=== PATIENT | male | born 1975 | race Caucasian/White ===

== ENCOUNTER 2017-02-23 12:55 | Emergency (ER) | payer MEDICAID ==
[~2017-02-23] VITALS: Ht 175.3 cm; Wt 78.5 kg
[2017-02-23 12:59] VITALS: Ht 175.3 cm; Wt 78.5 kg
[2017-02-23] MEDS ORDERED: ONDANSETRON (ODT) 4 MG TAB ODT STA (15:08)
[2017-02-23 15:27] LABS: BASOPHIL # 0.1 10^3/ul (0.0-0.1); BASOPHILS % 0.9 % (0.0-2.0); EOSINOPHILS # 0.2 10^3/ul (0.0-0.5); EOSINOPHILS % 2.4 % (0.0-7.0); HEMATOCRIT 45.5 % (42.0-52.0); HEMOGLOBIN 16.1 g/dl (14.0-18.0); LYMPHOCYTES # 3.6 10^3/ul (0.8-2.9); LYMPHOCYTES % 36.2 % (15.0-51.0); MEAN CORPUSCULAR HEMOGLOBIN 32.2 pg (29.0-33.0); MEAN CORPUSCULAR HGB CONC 35.4 g/dl (32.0-37.0); MEAN PLATELET VOLUME 10.7 fl (7.4-10.4); MONOCYTE # 0.8 10^3/ul (0.3-0.9); MONOCYTES % 8.2 % (0.0-11.0); NEUTROPHIL # 5.1 10^3/ul (1.6-7.5); NEUTROPHILS % 51.9 % (39.0-77.0); PLATELET COUNT 248 10^3/UL (140-415); RED CELL DISTRIBUTION WIDTH 12.2 % (11.5-14.5); WHITE BLOOD COUNT 9.9 10^3/ul (4.8-10.8)
[2017-02-23] MEDS ORDERED: DICYCLOMINE 10 MG CAP PO ONE (15:30)
[2017-02-23 15:34] LABS: ADD UMIC NO; UR ASCORBIC ACID NEGATIVE (NEGATIVE); UR BILIRUBIN (Dip) NEGATIVE (NEGATIVE); UR BLOOD (Dip) NEGATIVE (NEGATIVE); UR CLARITY CLEAR (CLEAR); UR COLOR YELLOW (YELLOW); UR GLUCOSE (Dip) NEGATIVE (NEGATIVE); UR KETONES (Dip) NEGATIVE (NEGATIVE); UR LEUKOCYTE ESTERASE (Dip) NEGATIVE Leu/ul (NEGATIVE); UR NITRITE (Dip) NEGATIVE (NEGATIVE); UR SPECIFIC GRAVITY (Dip) 1.012 (1.003-1.030); UR TOTAL PROTEIN (Dip) NEGATIVE (NEGATIVE); UR UROBILINOGEN (Dip) NEGATIVE (NEGATIVE)
[2017-02-23 15:44] LABS: ALBUMIN 4.6 g/dl (3.3-4.9); ALBUMIN/GLOBULIN RATIO 1.53; BILIRUBIN,INDIRECT 0.3 mg/dl (0-1.1); BILIRUBIN,TOTAL 0.3 mg/dl (0.2-1.3); CALCIUM 9.5 mg/dl (8.4-10.2); CREATININE 0.93 mg/dl (0.61-1.24); POTASSIUM 4.1 mmol/L (3.5-5.1); TOTAL PROTEIN 7.6 g/dl (6.1-8.1)
[2017-02-23] MEDS ORDERED: ONDA4TAB14 PO (16:35)
[2017-02-23] MEDS ORDERED: DICY10CA60 PO (16:35)
--- NOTE | 2017-02-23 16:45 | ERD ---
ER Documentation Chief Complaint Chief Complaint Complains of abdominal pain x 3 days HPI Patient is a 41-year-old male who presents ED for concerns of abdominal pain 5 days. Patient states he has cramping pain throughout his abdomen. Patient also reports nausea vomiting and diarrhea. Patient approximate 1-2 episodes of nonbloody nonbilious vomiting per day. Patient approximates for episodes of nonbloody, non-mucousy, non-malodorous watery stools per day. Patient denies any rectal bleeding. Patient denies any fevers, chills, chest pain, shortness of breath or loss of consciousness. Patient denies any lightheadedness. Patient denies any recent travel. Patient denies any recent antibiotic use. ROS All systems reviewed and are negative except as per history of present illness. Medications Home Meds Active Scripts Ondansetron (Ondansetron Odt) 4 Mg Tab.rapdis, 4 MG PO Q6H Y for NAUSEA AND/OR VOMITING, #10 TAB Prov:EBENEZER GUZMÁN PA-C 02/23/17 Dicyclomine Hcl* (Bentyl*) 10 Mg Capsule, 10 MG PO TID, #20 CAP Prov:EBENEZER GUZMÁN PA-C 02/23/17 Allergies Allergies: Coded Allergies: Penicillins (Verified Allergy, Unknown, ANAPHYLACTIC SHOCK, 02/23/17) PMhx/Soc Medical and Surgical Hx: pt denies Medical Hx, pt denies Surgical Hx Hx Alcohol Use: No Hx Substance Use: No Hx Tobacco Use: No Physical Exam Vitals Vital Signs Date Time Temp Pulse Resp B/P Pulse Ox O2 Delivery O2 Flow Rate FiO2 02/23/17 12:59 97.8 83 20 136/89 100 Physical Exam GENERAL: Well-developed, well-nourished male. Appears in no acute distress. HEAD: Normocephalic, atraumatic. EYES: Pupils are equally reactive bilaterally. EOMs grossly intact. No conjunctival erythema. ENT: Moist mucous membranes. No uvula deviation. No kissing tonsils. NECK: Supple. No meningismus. Normal range of motion of the neck. LUNG: Clear to auscultation bilaterally. No rhonchi, wheezing, rales or coarse breath sounds. HEART: Regular rate and rhythm. No murmurs, rubs or gallops. ABDOMEN: Soft and nondistended. Diffuse tenderness to palpation in all four quadrants. Positive bowel sounds in all four quadrants. No rebound tenderness, no guarding. (-) McBurney's point tenderness. No CVA tenderness. EXTREMITIES: Equal pulses bilaterally. No peripheral clubbing, cyanosis or edema. No unilateral leg swelling. NEUROLOGIC: Alert and oriented. Moving all four extremities without any difficulty. Normal speech. Steady gait. SKIN: Normal color. Warm and dry. No rashes or lesions. Result Diagram: 02/23/17 1518 02/23/17 1518 Results 24 hrs Laboratory Tests Test 02/23/17 15:10 02/23/17 15:18 Urine Color YELLOW Urine Clarity CLEAR Urine pH 7.0 Urine Specific [place] 1.012 Urine Ketones NEGATIVEmg/dL Urine Nitrite NEGATIVEmg/dL Urine Bilirubin NEGATIVEmg/dL Urine Urobilinogen NEGATIVEmg/dL Urine Leukocyte Esterase NEGATIVELeu/ul Urine Hemoglobin NEGATIVEmg/dL Urine Glucose NEGATIVEmg/dL Urine Total Protein NEGATIVEmg/dl White Blood Count 9.910^3/ul Red Blood Count 5.0010^6/ul Hemoglobin 16.1g/dl Hematocrit 45.5% Mean Corpuscular Volume 91.0fl Mean Corpuscular Hemoglobin 32.2pg Mean Corpuscular Hemoglobin Concent 35.4g/dl Red Cell Distribution Width 12.2% Platelet Count 89946^3/UL Mean Platelet Volume 10.7fl Neutrophils % 51.9% Lymphocytes % 36.2% Monocytes % 8.2% Eosinophils % 2.4% Basophils % 0.9% Nucleated Red Blood Cells % 0.0/100WBC Neutrophils # 5.110^3/ul Lymphocytes # 3.610^3/ul Monocytes # 0.810^3/ul Eosinophils # 0.210^3/ul Basophils # 0.110^3/ul Nucleated Red Blood Cells # 0.010^3/ul Sodium Level 142mmol/L Potassium Level 4.1mmol/L Chloride Level 104mmol/L Carbon Dioxide Level 25mmol/L Anion Gap 17 Blood Urea Nitrogen 11mg/dl Creatinine 0.93mg/dl Glucose Level 87mg/dl Calcium Level 9.5mg/dl Total Bilirubin 0.3mg/dl Direct Bilirubin 0.00mg/dl Indirect Bilirubin 0.3mg/dl Aspartate Amino Transf (AST/SGOT) 37IU/L Alanine Aminotransferase (ALT/SGPT) 69IU/L Alkaline Phosphatase 52IU/L Total Protein 7.6g/dl Albumin 4.6g/dl Globulin 3.00g/dl Albumin/Globulin Ratio 1.53 Lipase 445U/L Current Medications Medications (Trade) Dose Ordered Sig/Darinel Route PRN Reason Start Time Stop Time Status Last Admin Dose Admin Dicyclomine HCl (Bentyl) 10 mg ONCE ONCE PO 02/23/17 15:30 12 15:31 DC 02/23/17 15:23 Ondansetron HCl (Zofran Odt) 4 mg ONCE STAT ODT 02/23/17 15:08 02/23/17 15:09 DC 02/23/17 15:23 Procedures/MDM MEDICAL DECISION MAKING: This is a 41-year-old male who presents ED for diffuse abdominal pain, nausea, vomiting, diarrhea 5 days.. Vital signs were reviewed. Patient is afebrile. Abdominal exam revealed diffuse tenderness in all 4 quadrants. CBC showed no evidence of systemic infection or severe anemia. CMP showed no evidence of electrolyte abnormalities, severe acidosis, alkalosis, renal failure, or liver disease. Lipase was elevated however there is no evidence of acute pancreatitis. Lipase is not 3 times the upper limit. UA showed no evidence of acute infection or hematuria. Upon discussing the patient's blood work findings with him, patient did state that his symptoms were improved with receiving Zofran and wished to eat. Patient was educated on BRAT diet. Patient was advised to drink plenty of fluids and stay hydrated. Patient was nontoxic, [id number] prior to discharge. At this time, patient's presentation is most consistent with viral gastroenteritis. Unble to rule out any bacterial causes. Patient was advised to follow-up with his primary care physician for stool studies on outpatient basis. Low suspicion for AAA, mesenteric ischemia, bowel obstruction, DKA, bowel perforation, cholecystitis, choledocholithiasis, ascending cholangitis, pancreatitis, PUD, gastritis, GERD, splenic rupture, diverticulitis, UTI, pyelonephritis, nephrolithiasis, appendicitis, constipation. PRESCRIPTIONS: Bentyl, Zofran DISCHARGE: At this time, patient is stable for discharge and outpatient management. Patient was given a copy of all imaging studies and blood work obtained today. I have instructed the patient to follow-up with his/her primary care physician in 1-2 days. I have instructed the patient to promptly return to the ER at any time for any new or worsening symptoms including increased pain, nausea, vomiting, diarrhea, fever, weakness or LOC. The patient and/or family expressed understanding of and agreement with this plan. All questions were answered. Home care instructions were provided. Disclaimer: Inadvertent spelling and grammatical errors are likely due to EHR/ dictation software use and do not reflect on the overall quality of patient care. Also, please note that the electronic time recorded on this note does not necessarily reflect the actual time of the patient encounter. Departure Diagnosis: Primary Impression: Nausea vomiting and diarrhea Additional Impression: Abdominal cramps Condition: Stable Patient Instructions: Gastroenteritis, Viral (6Y-Adult) Referrals: [facility] YOU HAVE RECEIVED A MEDICAL SCREENING EXAM AND THE RESULTS INDICATE THAT YOU DO NOT HAVE A CONDITION THAT REQUIRES URGENT TREATMENT IN THE EMERGENCY DEPARTMENT. FURTHER EVALUATION AND TREATMENT OF YOUR CONDITION CAN WAIT UNTIL YOU ARE SEEN IN YOUR DOCTORS OFFICE WITHIN THE NEXT 1-2 DAYS. IT IS YOUR RESPONSIBILITY TO MAKE AN APPOINTMENT FOR FOLOW-UP CARE. IF YOU HAVE A PRIMARY DOCTOR --you should call your primary doctor and schedule an appointment IF YOU DO NOT HAVE A PRIMARY DOCTOR YOU CAN CALL OUR PHYSICIAN REFERRAL HOTLINE AT IF YOU CAN NOT AFFORD TO SEE A PHYSICIAN YOU CAN CHOSE FROM THE FOLLOWING [facility] [address] [facility] [address] [facility]. [facility] [address] [facility] [address] [facility] [facility] [address] [facility]. [facility]. [address] [facility]. [facility] YOU HAVE RECEIVED A MEDICAL SCREENING EXAM AND THE RESULTS INDICATE THAT YOU DO NOT HAVE A CONDITION THAT REQUIRES URGENT TREATMENT IN THE EMERGENCY DEPARTMENT. FURTHER EVALUATION AND TREATMENT OF YOUR CONDITION CAN WAIT UNTIL YOU ARE SEEN IN YOUR DOCTORS OFFICE WITHIN THE NEXT 1-2 DAYS. IT IS YOUR RESPONSIBILITY TO MAKE AN APPOINTMENT FOR FOLOW-UP CARE. IF YOU HAVE A PRIMARY DOCTOR --you should call your primary doctor and schedule and appointment IF YOU DO NOT HAVE A PRIMARY DOCTOR YOU CAN CALL OUR PHYSICIAN REFERRAL HOTLINE AT . IF YOU CAN NOT AFFORD TO SEE A PHYSICIAN YOU CAN CHOSE FROM THE FOLLOWING [facility] INSTITUTIONS: [facility] [address] [place] [address] [facility] [address] [place] [address] [facility] [address] [place] [address] Additional Instructions: Follow up with your doctor for stool studies. Call your primary care doctor TOMORROW for an appointment during the next 1-2 days.See the doctor sooner or return here if your condition worsens before your appointment time. EBENEZER GUZMÁN PA-C Feb 23, 2017 16:45
== END 2017-02-23 17:20 | disposition home or self-care (01) ==
LOC: EDBD 12:55 → FTE 12:55
DX: R11.2 Nausea with vomiting, unspecified (principal); R10.84 Generalized abdominal pain; R19.7 Diarrhea, unspecified
CPT/HCPCS: 36415; 80053; 81003; 83690; 85025; Z7502; Z7610; 99284